=== PATIENT | male | born 1965 | race Caucasian/White ===

== ENCOUNTER → 2023-05-09 11:42 | Outpatient (CLI) | payer OTHER, SELFPAY ==
--- NOTE | 2023-05-09 | DI.MRI.S_ITS ---
PROCEDURE: MR ANKLE LT WO CON INDICATIONS: Pain in left ankle and joints of left foot TECHNIQUE: Noncontrast sagittal T1 spin echo and T2 fast spin echo with fat saturation, axial proton density fast spin echo and T2 fast spin echo with fat saturation, coronal T1 spin echo and T2 fast spin echo with fat saturation through the ankle/hindfoot. COMPARISON: None. FINDINGS: Image quality: Excellent. Bones and joints: Marrow edema involving lateral portion of mid to distal calcaneus is seen without discrete fracture line. [id number] midfoot and hindfoot joint osteoarthritic changes are seen with joint space narrowing, subchondral sclerosis and anter marginal osteophyte formation most notably at tibiotalar joint. Mild edema involving distal weight-bearing portion of talus is seen without discrete fracture line. Suggestion of tiny osteochondral injuries are seen in mid to lateral portion of distal tibial plafond. No definite osteochondral injuries of talar dome is seen. Small to moderate amount of tibiotalar joint effusion is noted, no gross loose bodies. Medial structures: The posterior tibialis, flexor digitorum longus, and flexor hallucis longus tendons are intact. Moderate amount of fluid distending flexor tendon sheath is seen The posterior tibial neurovascular bundle appears normal within the tarsal tunnel, without extrinsic mass effect. The deep layer (anterior and posterior tibiotalar ligaments) and superficial layer (tibionavicular, tibiospring, and tibiocalcaneal ligaments) of the deltoid ligament appear normal. The spring ligament components (superomedial calcaneonavicular, medioplantar oblique calcaneonavicular, and inferoplantar longitudinal ligaments) are intact. Lateral structures: The anterior talofibular ligament is not visualized suggestive of ruptured ATFL. The calcaneofibular, and posterior talofibular ligaments appear thickened. More superiorly, the anterior and posterior tibiofibular ligaments also appears thickened. The tibiofibular syndesmosis is normal in width at 2 mm or less. Fluid is seen distending peroneus tendon sheath with markedly thickened peroneus longus tendon with intrasubstance T2 hyperintense signal at the level of mid to distal calcaneus and cuboid. No full-thickness tendon rupture. The sinus tarsi demonstrates normal fatty signal, without edema, fibrosis, or cyst formation. Visualized sinus tarsi components (cervical ligament, interosseous talocalcaneal ligament, roots of the inferior extensor retinaculum) appear normal. The calcaneonavicular and calcaneocuboid components of the bifurcate ligament appear intact. The dorsal calcaneocuboid ligament appears intact. Anterior structures: The tibialis anterior, extensor hallucis longus, and extensor digitorum longus tendons appear intact. Large amount of fluid distending tendon sheath of extensor digitorum longus tendon at the level of tibiotalar joint extending to the dorsal aspect of midfoot is seen. The dorsal talonavicular ligament appears intact. Posterior and plantar structures: Achilles tendon is intact. Medial and lateral bands of the plantar fascia are of normal thickness. No abductor digiti quinti muscle atrophy to suggest Cardona neuropathy. IMPRESSION: 1. 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 Marrow edema involving lateral portion of mid to distal calcaneus, distal weight-bearing portion of talus without discrete fracture line suggestive of bony contusion. Tiny osteochondral injuries involving distal tibial plafond. No definite osteochondral injuries of talar dome is seen. Small to moderate joint effusion, no gross loose bodies. 2. Moderate tenosynovitis involving flexor tendons. Moderate to severe tenosynovitis involving extensor digitorum longus tendon at the level of tibiotalar joint extending to level over dorsal aspect of midfoot. 3. Moderate grade tenosynovitis involving peroneus tendons with moderate grade intrasubstance partial-thickness tear involving peroneus longus tendon at the level of mid to distal calcaneus and calcaneocuboid joint. 4. Finding is suggestive of ruptured ATFL with low-grade sprain involving rest of the lateral ankle ligaments. Dictated by: Patrick Ren M.D. on 05/09/2023 at 13:12 Approved by: Patrick Ren M.D. on 05/09/2023 at 14:56
== END ==
PROVIDERS: PCP Physician Assistant; Referring Provider Podiatrist Foot & Ankle Surgery; Visit Provider Podiatrist Foot & Ankle Surgery
DX: M25.572 Pain in left ankle and joints of left foot (principal); M24.072 Loose body in left ankle; M24.075 Loose body in left toe joint(s); M19.072 Primary osteoarthritis, left ankle and foot; R93.6 Abnormal findings on diagnostic imaging of limbs; M25.472 Effusion, left ankle; M65.872 Other synovitis and tenosynovitis, left ankle and foot; S96.812A Strain of other specified muscles and tendons at ankle and foot level, left foot, initial encounter
CPT/HCPCS: 73721

== ENCOUNTER → 2024-05-07 07:39 | Outpatient (CLI) | payer OTHER, SELFPAY ==
--- NOTE | 2024-05-07 07:40 | DI.RAD.S_ITS ---
PROCEDURE: XR LUMBAR SPINE MIN 4V INDICATIONS: RIGHT HIP PAIN TECHNIQUE: 6 views of the lumbar spine were acquired, including bilateral oblique views. COMPARISON: None. FINDINGS: Bones: 5 nonrib-bearing vertebrae are present. There is straightening of normal lumbar lordosis. Loss of disc height, degenerative endplate changes and bilateral facet arthrosis throughout lumbar spine is seen. No vertebral body compression fractures. No suspicious bony lesions. Soft tissues: Overlying bowel gas pattern is normal. No suspicious soft tissue calcifications. Oblique images: No pars defects. Bilateral bony foraminal stenosis at L2-3 through L5-S1 levels are seen. IMPRESSION: 1. [id number] degenerative disc disease throughout lumbar spine. No acute vertebral body compression fracture. 2. No gross pars defects. Bilateral bony foraminal stenosis at L2-3 through L5-S1 levels are seen on oblique views. Dictated by: Patrick Ren M.D. on 05/07/2024 at 10:08 Approved by: Patrick Ren M.D. on 05/07/2024 at 10:09
== END ==
PROVIDERS: PCP Family Medicine; Referring Provider Physical Medicine & Rehabilitation; Visit Provider Physical Medicine & Rehabilitation
DX: M16.11 Unilateral primary osteoarthritis, right hip (principal); M25.551 Pain in right hip; M51.369 Other intervertebral disc degeneration, lumbar region without mention of lumbar back pain or lower extremity pain; M48.061 Spinal stenosis, lumbar region without neurogenic claudication; M48.07 Spinal stenosis, lumbosacral region
CPT/HCPCS: 72110